=== PATIENT | female | born 1965 | race Caucasian/White ===

== ENCOUNTER 2017-10-16 16:15 | Emergency (ER) | payer OTHER ==
[~2017-10-16] VITALS: Ht 165.1 cm; Wt 86.2 kg
--- NOTE | 2017-10-16 17:51 | ED CARDIAC/CP/PALPITATIONS ---
History of Present Illness General Chief Complaint: Chest Pain Stated Complaint: CP Source: patient, family Exam Limitations: no limitations Vital Signs & Intake/Output Vital Signs & Intake/Output Vital Signs Date Time Temp Pulse Resp B/P B/P Pulse O2 O2 Flow FiO2 Mean Ox Delivery Rate 10/16 2153 75 18 179/83 98 Room Air 10/16 1929 Room Air 10/168 76 18 166/77 98 Room Air 10/16 1802 72 18 163/89 95 Room Air 10/16 1756 Room Air 10/16 1631 99.5 108 16 168/95 98 Room Air ED Intake and Output 10/17 0000 10/16 1200 Intake Total Output Total Balance Patient 190 lb Weight Weight Reported by Patient Measurement Method Allergies Coded Allergies: No Known Allergies (10/16/17) Triage Note: PT STATES CHEST PAIN RIGHT ON HER STERNUM THAT BEGAN 1 HOUR AGO. PT STATES SHE DID FEEL SOB BUT DENIES DIAPHORESIS. PT DENIES ANY HEART PROBLEMS. Triage Nurses Notes Reviewed? yes Onset: Abrupt Duration: hour(s): (1-2), better, continues in ED Timing: single episode today Quality/Severity: mild, pressure Location: central Radiation: no radiation Activities at Onset: none, rest Prior Chest Pain/Card Workup: no prior chest pain, no prior cardiac workup Nitro Today/Relief: no nitro taken today Aspirin Today: 325 mg x 1, provided by ED LMP (ages 10-50): post menopausal, unknown : No Patient currently breastfeeds: No HPI: 52-year-old female with no past medical history presents for evaluation of chest pain. Patient states she was in her usual state of health until one hour prior to presentation when she developed chest pain. Patient states she was at rest sitting down when she suddenly felt sharp central chest pain. The pain started about severe located in the center of her chest and did not radiate. The sharp severe pain lasted less than a minute before changing to pressure. Initially the pain was an 8 out of 10 and then was a 5 out of 10 when it changed to pressure. The pressure is gradually been improving without treatment and currently is a 2 out of 10. She reports when the pain was initially severe she had associated shortness of breath but no other symptoms. There is no sweats chills nausea vomiting hemoptysis lower extremity edema dizziness or lightheadedness. She's never had this before. She does not drink smoke or use any drugs. She has no personal or family history of heart disease. There is no recent surgery recent trauma or recent hospitalizations. She does not take any medicine for this pain. The pain was not worsened with exertion. There is no alleviating or aggravating factors. The pain seems to be getting better on its own. (Arnold Jain) Past History Travel History Traveled to [place] past 21 day No Medical History Any Pertinent Medical History? see below for history Surgical History Surgical History: non-contributory Psychosocial History What is your primary language Other Tobacco Use: Never used ETOH Use: denies use Illicit Drug Use: denies illicit drug use Family History Hx Contributory? No (Arnold Jain) Review of Systems Review of Systems Constitutional: Reports: no symptoms. EENTM: Reports: no symptoms. Respiratory: Reports: short of breath. Cardiovascular: Reports: see HPI, chest pain. GI: Reports: no symptoms. Genitourinary: Reports: no symptoms. Musculoskeletal: Reports: no symptoms. Skin: Reports: no symptoms. Neurological/Psychological: Reports: no symptoms. Hematologic/Endocrine: Reports: no symptoms. Immunologic/Allergic: Reports: no symptoms. All Other Systems: Reviewed and Negative (Arnold Jain) Physical Exam Physical Exam General Appearance: well developed/nourished, no apparent distress, alert, awake Head: atraumatic, normal appearance Eyes: Bilateral: normal appearance, PERRL, EOMI. Ears, Nose, Throat: normal pharynx, normal ENT inspection, hearing grossly normal Neck: normal inspection, supple, full range of motion Respiratory: normal breath sounds, chest non-tender, no respiratory distress, lungs clear Cardiovascular: regular rate/rhythm, normal peripheral pulses Peripheral Pulses: 2+ radial (R), 2+ radial (L), 2+ tibialis posterior (R), 2+ tibialis posterior ( L) Gastrointestinal: normal bowel sounds, soft, non-tender, no organomegaly Back: normal inspection, normal range of motion Extremities: normal inspection, normal range of motion, no edema Neurologic/Psych: no motor/sensory deficits, awake, alert, oriented x 3, normal gait Skin: intact, normal color, warm/dry Lymphatic: no anterior cervical jamie Core Measures ACS in differential dx? Yes CVA/TIA Diagnosis No Sepsis Present: No Sepsis Focused Exam Completed? No (Arnold Jain) Progress Differential Diagnosis: AMI, aortic dissection, atrial fibrillation, CHF/pulm edema, costochondritis, musculoskeletal pain, myocarditis, pancreatitis, pericarditis, pneumonia, pneumothorax, PSVT, pulmonary embolism, PUD/GERD, PVCs/ PACs, rib fracture, unstable angina Plan of Care: Orders Procedure Date/time Status TROPONIN LEVEL 10/16 2029 Complete EKG 10/16 2029 Active Telemetry/Dials Inspector 10/16 163 Active TROPONIN LEVEL 10/16 1633 Complete D-DIMER 10/16 1633 Complete COMPREHENSIVE METABOLIC PANEL 10/16 1633 Complete CBC WITHOUT DIFFERENTIAL 10/16 1633 Complete EKG 10/16 1624 Active Laboratory Tests 10/16/17 2018: Troponin I < 0.01 10/16/17 1733: Anion Gap 14, Estimated GFR > 60, BUN/Creatinine Ratio 21.4, Glucose 83, Calcium 10.0, Total Bilirubin 0.3, AST 28, ALT 29, Alkaline Phosphatase 76, Troponin I < 0.01, Total Protein 7.7, Albumin 4.4, Globulin 3.3, Albumin/Globulin Ratio 1.3, D-Dimer High Sensitivty < 200, CBC w Diff NO MAN DIFF REQ, RBC 4.62, MCV 92.2, MCH 30.9, MCHC 33.5, RDW 12.0, MPV 8.7, Gran % 67.1, Lymphocytes % 23.7, Monocytes % 7.7, Eosinophils % 1.1, Basophils % 0.4, Absolute Granulocytes 6.0, Absolute Lymphocytes 2.1, Absolute Monocytes 0.7 H, Absolute Eosinophils 0.1, Absolute Basophils 0 Patient seen and evaluated. She is here with episode of chest pain. The pain started about an hour prior to presentation initially was severe but now is improving without any treatment. Currently she reports a very mild 2 out of 10 chest pressure that is not worse on exertion. There are no alleviating or aggravating factors. No other associated symptoms. She has no cardiac risk factors. EKG labs chest x-ray ordered. Initial EKG shows sinus tachycardia without significant change. Initial troponin d-dimer negative. Remaining labs are within normal limits. Patient continues to report improvement in her symptoms. She appears to be resting comfortably. Repeat EKG and troponin ordered. Repeat EKG shows a flipped T-wave in lead 3 but no other significant changes. Patient's chest pain has improved significantly from an 8 out of 10 now to a 1 out of 10. She is requesting to go home. Her troponin is negative 2 she has a negative d-dimer. Chest x-ray suggested a possible right lower lobe pneumonia and also a small granuloma. patient has no fever cough or white count. Heart score is 2 indicating patient is at very low risk for major cardiac event. She has no risk factors negative troponin and history was only slightly suspicious and there are some nonspecific EKG changes. Patient did not want to wait for a CT scan of the chest for further evaluation of the abnormal chest x-ray. Reviewed all results of today's visit with patient. Advised her to follow-up with her primary care doctor. She'll also be referred to a service technician. Discussed return precautions in detail. Case discussed with Dr. Restrepo he agrees. Diagnostic Imaging: Viewed by Me: Radiology Read. Discussed w/RAD: Radiology Read. CXR Impression: PATIENT: BRUNO PHAM PRESENT AGE: 52 PATIENT ACCOUNT NO: [id number] : 65 LOCATION: [facility] [place] ORDERING PHYSICIAN: Arnold DONAHUE SERVICE DATE: 10/16/17 EXAM TYPE: RAD - XRY-CHEST XRAY, TWO VIEWS EXAMINATION: XR CHEST CLINICAL INFORMATION: Chest pain pneumonia COMPARISON: None TECHNIQUE: 2 views of the chest were obtained. FINDINGS: There is subtle opacity in the right lower lobe. 2 mm nodule opacity in the mid right lung between the posterior right fifth and sixth ribs probably reflects a small granuloma Cardiac silhouette mediastinum pulmonary vascularity are normal. IMPRESSION: Subtle opacity in the right lower lobe could reflect atelectasis or evolving pneumonia. Tiny nodular opacity in the right midlung most likely reflects a small granuloma. If no prior chest imaging performed recommend repeat chest x-ray in one year to confirm suspected benign nodular density. Alternatively a screening CT of the chest could be performed if patient at high risk for lung cancer DICTATED BY: Jeremiah Thompson MD DATE/TIME DICTATED:10/16 BARREL RAISER HELPER:BELLE DATE/TIME TRANSCRIBED:10/16/171940 CONFIDENTIAL, DO NOT COPY WITHOUT APPROPRIATE AUTHORIZATION. <Electronically signed in Other Vendor System> SIGNED BY: Jeremiah Thompson MD 10/16/171947 Initial ED EKG: sinus tachycardia rate 107 left atrial abnormality left axis deviation Repeat EKG: unchanged Rhythm Strip: normal sinus rhythm (Arnold Jain) Departure Departure Disposition: HOME OR SELF CARE Condition: Stable Clinical Impression Primary Impression: Chest pain Qualifiers: Chest pain type: unspecified Qualified Code: R07.9 - Chest pain, unspecified Referrals: Jorge LOMELI,Sim Norman (PCP/Family) Angelita Gonzales MD Additional Instructions: Monitor symptoms closely. If you have worsening chest pain shortness of breath or any other concerns return immediately. Follow-up with YOUr primary care doctor and provided service technician Dr. Gonzales. Review all results of today's visit with her primary care doctor. Monitor symptoms return with any concerns. Please go over all results of today's visit with your primary care doctor. Contact your primary care doctor to let them know you were here in the emergency room. There may be nonspecific findings which may not be related to your visit today here in the emergency room but may require further evaluation and chronic monitoring by your primary care doctor. If you had a laceration today the chance of foreign body always remains. You should follow-up with your primary care doctor for recheck in 3-5 days for a wound check. If you had an x-ray done there is a chance that a fracture could have been missed on initial read and you should follow-up with your primary care doctor for repeat x-rays if symptoms persist. If your blood pressure was elevated here in the emergency room please have rechecked by her primary care doctor within the next 48 hours by your primary care doctor. If you were prescribed a narcotic here in the emergency room or any type of controlled substances you're not allowed to drive while taking this medication or operate any type of heavy machinery. Narcotics can make you feel lightheaded dizziness nausea and can cause constipation. You may need to pick up attendant a stool softener. Thank you for choosing [facility] emergency room. Please return to the emergency room immediately if you have any other concerns worsening of symptoms. Departure Forms: Customer Survey General Discharge Information (Arnlod Jain) [employer] Co-Sign Statement Statement: ED Attending supervision documentation- [] I saw and evaluated the patient. I have also reviewed all the pertinent lab results and diagnostic results. I agree with the findings and the plan of care as documented in the PA's[employer]'s documentation. [x] I have reviewed the ED Record and agree with the PA's[employer]'s documentation. [] Additions or exceptions (if any) to the PAs[employer]'s note and plan are summarized below: [] (Lauro LOMELI,Curt Henderson) Critical Care Note Critical Care Note Critical Care Time: non-applicable (Arnold Jain)
[2017-10-16 18:24] LABS: ABSOLUTE BASOPHIL COUNT 0 /CUMM (0.0-0.2); ABSOLUTE EOSINOPHIL COUNT 0.1 /CUMM (0.0-0.7); ABSOLUTE LYMPH COUNT 2.1 /CUMM (1.2-3.4); ABSOLUTE MONOCYTE COUNT 0.7 /CUMM (0.10-0.60); BASOPHIL % 0.4 % (0.0-2.0); EOSINOPHIL % 1.1 % (0-5); GRANULOCYTE % 67.1 % (42.2-75.2); HEMATOCRIT 42.6 % (37-47); MEAN CORPUSCULAR HGB 30.9 PG (27.0-31.0); MEAN CORPUSCULAR HGB CONC 33.5 G/DL (33.0-37.0); MEAN CORPUSCULAR VOLUME 92.2 FL (81.0-99.0); MEAN PLATELET VOLUME 8.7 FL (7.4-10.4); PLATELET COUNT 349 /CUMM (130-400); RED BLOOD CELL CT 4.62 /CUMM (4.20-5.40); WHITE BLOOD CELL COUNT 8.9 /CUMM (4.8-10.8)
--- NOTE | 2017-10-16 19:48 | RADIOLOGY REPORT ---
EXAMINATION: XR CHEST CLINICAL INFORMATION: Chest pain pneumonia COMPARISON: None TECHNIQUE: 2 views of the chest were obtained. FINDINGS: There is subtle opacity in the right lower lobe. 2 mm nodule opacity in the mid right lung between the posterior right fifth and sixth ribs probably reflects a small granuloma Cardiac silhouette mediastinum pulmonary vascularity are normal. IMPRESSION: Subtle opacity in the right lower lobe could reflect atelectasis or evolving pneumonia. Tiny nodular opacity in the right midlung most likely reflects a small granuloma. If no prior chest imaging performed recommend repeat chest x-ray in one year to confirm suspected benign nodular density. Alternatively a screening CT of the chest could be performed if patient at high risk for lung cancer
[2017-10-16 21:53] VITALS: BP 179/83
== END 2017-10-16 22:25 ==
LOC: ERH 16:15
PROVIDERS: Physician Assistant
DX: R07.89 Other chest pain (principal)
CPT/HCPCS: 71046; 93005; 93010; J3490